=== PATIENT | male | born 1965 | race Two or more races ===

== ENCOUNTER 2017-02-02 17:05 | Emergency (ER) | payer MEDICAID, OTHER ==
[2017-02-02] MEDS ORDERED: NS 1,000 ML IV ONE (17:38)
[2017-02-02] MEDS ORDERED: ONDANSETRON 4 MG/2 ML VIAL IVP ONE (17:38)
[2017-02-02 17:55] LABS: % IMMATURE GRANULYOCYTES 0.3 % (0.0-1.1); ABSOLUTE IMMATURE GRANULOCYTES 0.02 10^3/uL (0.00-0.10); ADD DIFF? NO; ADD MORPH? NO; ADD SCAN? NO; ATYPICAL LYMPHOCYTE FLAG 0 (0-99); FRAGMENT RBC FLAG 0 (0-99); HEMATOCRIT 44.2 % (40.0-51.0); HEMOGLOBIN 15.2 g/dL (13.7-17.5); LEFT SHIFT FLG 0 (0-99); LIPEMIA HEMOLYSIS FLAG 90 (0-99); MEAN CELL HEMOGLOBIN 29.6 pg (27.9-34.1); MEAN CELL HEMOGLOBIN CONCENTR. 34.4 g/dL (32.4-36.7); MEAN CELL VOLUME 86.2 fL (81.5-99.8); MEAN PLATELET VOLUME 8.8 fL (8.7-11.7); PLATELET CLUMPS FLAG 0 (0-99); PLATELET COUNT 396 10^3/uL (150-400); RED BLOOD CELL COUNT 5.13 10^6/uL (4.40-6.38); RED CELL DISTRIBUTION WIDTH 15.4 % (11.5-15.2)
[2017-02-02 18:13] LABS: ALANINE AMINOTRANSFERASE 36 IU/L (21-72); ALBUMIN 3.9 g/dL (3.5-5.0); ALKALINE PHOSPHATASE 42 IU/L (38-126); ANION GAP 9 mEq/L (8-16); ASPARTATE AMINOTRANSFERASE 24 IU/L (17-59); BILIRUBIN,TOTAL 1.2 mg/dL (0.1-1.4); CALCIUM 9.5 mg/dL (8.5-10.4); CARBON DIOXIDE 21 mEq/l (22-31); CHLORIDE 105 mEq/L (97-110); CREATININE 0.8 mg/dL (0.7-1.3); GLOMERULAR FILTRATION RATE > 60; GLUCOSE 90 mg/dL (70-100); POTASSIUM 4.6 mEq/L (3.5-5.2); SODIUM 135 mEq/L (134-144); TOTAL PROTEIN 6.8 g/dL (6.3-8.2)
[2017-02-02 18:27] LABS: COLOR YELLOW; LEUKOCYTE ESTERASE,URINE NEGATIVE (NEGATIVE); NITRITE,URINE NEGATIVE (NEGATIVE); PH,URINE 6.5 (5.0-7.5)
[2017-02-02] MEDS ORDERED: IOPAMIDOL (ISOVUE-300) 100 ML BTL ONE (18:46)
[2017-02-02 18:49] VITALS: RESP 16
[2017-02-02 19:32] VITALS: TEMP 97.9
--- NOTE | 2017-02-02 19:35 | EDPHY ---
H & P Stated Complaint: RUQ pain for 3-4 days Time Seen by Provider: 02/02/17 17:08 HPI/ROS: 51-year-old male presents complaining of right upper quadrant abdominal pain for the last 1 week. Associated with nausea. No vomiting, no diarrhea no constipation no fevers or chills. Patient states his pain is worse with eating. He also complains of several months of pain in his right lateral ribs. Review of systems As per HPI General no fever no chills no weakness HEENT no eye pain no eye discharge. 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 - Family History Significant Family History: No pertinent family hx - Social History Smoking Status: Current every day smoker Alcohol Use: Heavy Drug Use: None - Physical Exam Exam: 51-year-old male alert and oriented no acute distress nontoxic appearance afebrile HEENT atraumatic normocephalic, extraocular muscles intact, anicteric Oropharynx negative for erythema negative exudate, tolerating her own secretions Neck supple no meningismus Lungs clear to auscultation bilaterally Heart regular rate and rhythm without murmur rub or gallop Abdomen nondistended normoactive bowel sounds soft positive right middle quadrant tenderness, no guarding no rebound No pulsatile mass Back no CVA tenderness, no step-offs, no spinal tenderness Extremities no cyanosis clubbing or edema Neuro alert and oriented, no focal deficits Constitutional: Initial Vital Signs Temperature (C) 37.1 C 02/02/17 17:18 Heart Rate 62 02/02/17 17:18 Respiratory Rate 18 02/02/17 17:18 Blood Pressure 129/84 H 02/02/17 17:18 O2 Sat (%) 96 02/02/17 17:18 O2 Delivery Mode Room Air Allergies/Adverse Reactions: No Known Allergies Allergy (Verified 02/02/17 17:20) Home Medications: Medication Instructions Recorded Multivitamins [Multivitamin (*)] 1 each PO DAILY #0 tab 11/13/15 Ibuprofen [Advil] 200 - 400 mg PO BID PRN 11/14/15 [place]-3 Fatty Acids [Fish Oil 1000 1,000 mg PO DAILY 11/14/15 mg (*)] Otc Acid Reflux Med 1 tab PO DAILY PRN 11/14/15 Acetaminophen [Tylenol 325mg (*)] 650 mg PO Q4 PRN #0 tab 11/15/15 Medical Decision Making - Diagnostics Imaging Results: Imaging Impressions Abdomen CT 02/02/17 18:17 Impression: No CT findings for appendicitis. Mild constipation. Results called and discussed with Sadaf Calhoun MD on February 02, 2017 at 1953 hours. ED Course/Re-evaluation: Patient seen and evaluated for abdominal pain of 4-7 days duration in rib pain for several months duration. Differential diagnosis considered Gastritis, cholecystitis, cholelithiasis, pancreatitis, hepatitis, fatty liver, appendicitis, diverticulitis Labs CBC, CMP, lipase Within normal limits CT abdomen No acute pathology Gallbladder negative, negative appendicitis Impression Abdominal pain, unknown etiology Plan Discharge f/u pcp - Data Points Laboratory Results: Laboratory Results 02/02/17 17:51 02/02/17 17:51 02/02/17 02/02/17 02/02/17 18:15 17:51 17:51 WBC 7.46 10^3/uL 10^3/uL (3.80-9.50) RBC 5.13 10^6/uL 10^6/uL (4.40-6.38) Hgb 15.2 g/dL g/dL (13.7-17.5) Hct 44.2 % % (40.0-51.0) MCV 86.2 fL fL (81.5-99.8) MCH 29.6 pg pg (27.9-34.1) MCHC 34.4 g/dL g/dL (32.4-36.7) RDW 15.4 % H % (11.5-15.2) Plt Count 396 10^3/uL 10^3/uL (150-400) MPV 8.8 fL fL (8.7-11.7) Neut % (Auto) 59.9 % % (39.3-74.2) Lymph % (Auto) 30.8 % % (15.0-45.0) [place] % (Auto) 6.2 % % (4.5-13.0) Eos % (Auto) 2.1 % % (0.6-7.6) Baso % (Auto) 0.7 % % (0.3-1.7) Nucleat RBC Rel Count 0.0 % % (0.0-0.2) Absolute Neuts (auto) 4.47 10^3/uL 10^3/uL (1.70-6.50) Absolute Lymphs (auto) 2.30 10^3/uL 10^3/uL (1.00-3.00) Absolute Monos (auto) 0.46 10^3/uL 10^3/uL (0.30-0.80) Absolute Eos (auto) 0.16 10^3/uL 10^3/uL (0.03-0.40) Absolute Basos (auto) 0.05 10^3/uL 10^3/uL (0.02-0.10) Absolute Nucleated RBC 0.00 10^3/uL 10^3/uL (0-0.01) Immature Gran % 0.3 % % (0.0-1.1) Immature Gran # 0.02 10^3/uL 10^3/uL (0.00-0.10) Sodium 135 mEq/L mEq/L (134-144) Potassium 4.6 mEq/L mEq/L (3.5-5.2) Chloride 105 mEq/L mEq/L (97-110) Carbon Dioxide 21 mEq/l L mEq/l (22-31) Anion Gap 9 mEq/L mEq/L (8-16) BUN 15 mg/dL mg/dL (7-23) Creatinine 0.8 mg/dL mg/dL (0.7-1.3) Estimated GFR > 60 Glucose 90 mg/dL mg/dL (70-100) Calcium 9.5 mg/dL mg/dL (8.5-10.4) Total Bilirubin 1.2 mg/dL mg/dL (0.1-1.4) AST 24 IU/L IU/L (17-59) ALT 36 IU/L IU/L (21-72) Alkaline Phosphatase 42 IU/L IU/L (38-126) Total Protein 6.8 g/dL g/dL (6.3-8.2) Albumin 3.9 g/dL g/dL (3.5-5.0) Lipase 62 IU/L IU/L (23-300) Urine Color YELLOW Urine Appearance HAZY Urine pH 6.5 (5.0-7.5) Ur Specific [employer] [place] 1.020 (1.002-1.030) Urine Protein NEGATIVE (NEGATIVE) Urine Ketones NEGATIVE (NEGATIVE) Urine Blood NEGATIVE (NEGATIVE) Urine Nitrate NEGATIVE (NEGATIVE) Urine Bilirubin NEGATIVE (NEGATIVE) Urine Urobilinogen 0.2 EU EU (0.2-1.0) Ur Leukocyte Esterase NEGATIVE (NEGATIVE) Urine Glucose NEGATIVE (NEGATIVE) Medications Given: Discontinued Medications Sodium Chloride (Ns) 1,000 mls @ 0 mls/hr IV ONCE ONE PRN Reason: Wide Open Stop: 02/02/17 17:39 Last Admin: 02/02/17 17:44 Dose: 1,000 mls Ondansetron HCl (Zofran) 4 mg IVP EDNOW ONE Stop: 02/02/17 17:39 Last Admin: 02/02/17 17:44 Dose: 4 mg Departure - Departure Disposition: Home, Routine, Self-Care Clinical Impression: Abdominal pain Condition: Good Instructions: Acute Abdominal Pain (ED) Referrals: NANCY WYATT,. [Primary Care Provider] - As per Instructions
[2017-02-02 20:38] VITALS: BP 119/77; PULSE 50; O2SAT 97
== END 2017-02-02 20:41 | disposition home or self-care (01) ==
LOC: CED 17:05
PROC: 3E0337Z Introduction of Electrolytic and Water Balance Substance into Peripheral Vein, Percutaneous Approach (ICD-10-PCS; principal; 2017-02-02)
DX: R10.11 Right upper quadrant pain (principal); I10 Essential (primary) hypertension; F17.200 Nicotine dependence, unspecified, uncomplicated
CPT/HCPCS: 74177-PO; 80053-PO; 81003-PO; 83690-PO; 85025-PO; 96374; J2405; Q9967

== ENCOUNTER 2017-02-21 16:03 | Emergency (ER) | payer MEDICAID ==
[2017-02-21] MEDS ORDERED: ONDANSETRON DISINTEGRATING 4 MG TAB PO ONE (16:27)
[2017-02-21] MEDS ORDERED: CHLORDIAZEPOXIDE 25MG PREPK#6 BTL TAKEHOME ONE ×2 (16:29)
--- NOTE | 2017-02-21 16:29 | EDPHY ---
H & P Time Seen by Provider: 02/21/17 16:22 HPI/ROS: CHIEF COMPLAINT: Intoxication HISTORY OF PRESENT ILLNESS: The patient is a 51-year-old alcoholic man who comes to the emergency department complaining of vomiting and dehydration. He states that he has been on a binge for the last for 5 days. He has had 100 beers in the last 4 days. His last drink was about an hour ago. He is requesting help to control his vomiting. He is afebrile. No abdominal pain. He also had 1 episode of nonbloody diarrhea. He is here requesting nausea medication and IV fluids. REVIEW OF SYSTEMS: Constitutional: denies: chills, fever, recent illness, recent injury EENTM: denies: blurred vision, double vision, nose congestion Respiratory: denies: cough, shortness of breath Cardiac: denies: chest pain, irregular heart rate, lightheadedness, palpitations Gastrointestinal/Abdominal: See HPI Genitourinary: denies: dysuria, frequency, hematuria, pain Musculoskeletal: denies: joint pain, muscle pain Skin: denies: lesions, rash, jaundice, bruising Neurological: denies: headache, numbness, paresthesia, tingling, dizziness, weakness Hematologic/Lymphatic: denies: blood clots, easy bleeding, easy bruising Immunologic/allergic: denies: HIV/AIDS, transplant EXAM: GENERAL: Disheveled HEAD: Atraumatic, normocephalic. EYES: Pupils equal round and reactive to light, extraocular movements intact, sclera anicteric, conjunctiva are normal. ENT: TMs normal, nares patent, oropharynx clear without exudates. Moist mucous membranes. NECK: Normal range of motion, supple without lymphadenopathy or JVD. LUNGS: Breath sounds clear to auscultation bilaterally and equal. No wheezes rales or rhonchi. HEART: Regular rate and rhythm without murmurs, rubs or gallops. ABDOMEN: Soft, nontender, normoactive bowel sounds. No guarding, no rebound. No masses appreciated. BACK: No CVA tenderness, no spinal tenderness, step-offs or deformities EXTREMITIES: Normal range of motion, no pitting or edema. No clubbing or cyanosis. NEUROLOGICAL: Cranial nerves II through XII grossly intact. Normal speech, normal gait. 5/5 strength, normal movement in all extremities, normal sensation PSYCH: And slightly slurred speech, intoxicated SKIN: Warm, dry, normal turgor, no visible rashes or lesions. 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 - Family History Significant Family History: No pertinent family hx - Social History Smoking Status: Current every day smoker Alcohol Use: Heavy Constitutional: Initial Vital Signs Temperature (C) 36.5 C 02/21/17 16:15 Heart Rate 97 02/21/17 16:15 Respiratory Rate 18 02/21/17 16:15 Blood Pressure 138/92 H 02/21/17 16:15 O2 Sat (%) 91 L 02/21/17 16:15 O2 Delivery Mode Room Air Allergies/Adverse Reactions: No Known Allergies Allergy (Verified 02/21/17 16:34) Home Medications: Medication Instructions Recorded Otc Acid Reflux Med 1 tab PO DAILY PRN 11/14/15 Medical Decision Making ED Course/Re-evaluation: Patient received oral Zofran. He is tolerating p.o. hydration. I will transfer to the alcohol recovery Center with police and Librium protocol. The patient understands and agrees with this plan. We discussed indications for returning. Differential Diagnosis: Partial list of the Differential diagnosis considered include but were not limited to; intoxication, withdrawal, gastroenteritis and although unlikely based on the history and physical exam, I also considered appendicitis, diverticulitis, biliary disease, obstruction, hepatic disease . I discussed these differential diagnoses and the plan with the patient as well as the usual and expected course. The patient understands that the diagnosis is provisional and that in medicine we are not always correct and that further workup is often warranted. Usual and customary warnings were given. All of the patient's questions were answered. The patient was instructed to return to the emergency department should the symptoms at all worsen or return, otherwise to followup with the physician as we discussed. - Data Points Medications Given: Discontinued Medications Chlordiazepoxide (Librium 25 Mg Prepack#6) 1 btl TAKEALEXAE EDNOW ONE Stop: 02/21/17 16:30 Last Admin: 02/21/17 16:31 Dose: 1 btl Ondansetron HCl (Zofran Odt) 8 mg PO EDNOW ONE Stop: 02/21/17 16:28 Last Admin: 02/21/17 16:31 Dose: 8 mg Departure - Departure Disposition: Home, Routine, Self-Care Clinical Impression: Alcohol abuse Vomiting Qualifiers: Vomiting type: unspecified Vomiting Intractability: unspecified Nausea presence : unspecified Qualified Code(s): R11.10 - Vomiting, unspecified Condition: Fair Instructions: Chlordiazepoxide (By mouth), Alcohol Intoxication (ED) Referrals: [facility],. [Primary Care Provider] - 1-2 days without fail
[2017-02-21 16:58] VITALS: BP 129/90; PULSE 96; RESP 18; O2SAT 94
[2017-02-21 17:08] VITALS: TEMP 97.7
== END 2017-02-21 17:08 | disposition home or self-care (01) ==
LOC: CED 16:03
DX: R11.10 Vomiting, unspecified (principal); F10.10 Alcohol abuse, uncomplicated; I10 Essential (primary) hypertension; F17.200 Nicotine dependence, unspecified, uncomplicated

== ENCOUNTER 2017-02-21 21:41 | Inpatient (IN) | payer MEDICAID ==
--- NOTE | 2017-02-21 22:00 | EDPHY ---
H & P Stated Complaint: n/v - Personal History Current Tetanus/Diphtheria Vaccine: Yes Current Tetanus Diphtheria and Acellular Pertussis (TDAP): Yes Tetanus Vaccine Date: 2013 - Medical/Surgical History Hx Asthma: No Hx Chronic Respiratory Disease: No Hx Diabetes: No Hx Cardiac Disease: No Hx Renal Disease: No Hx Cirrhosis: No Hx Alcoholism: Yes Hx HIV/AIDS: No Hx Splenectomy or Spleen Trauma: No Other PMH: Hypertension; ETOHism. - Social History Smoking Status: Current some day smoker Time Seen by Provider: 02/21/17 21:53 HPI/ROS: CHIEF COMPLAINT: Nausea and vomiting HISTORY OF PRESENT ILLNESS: The patient is a [place]-speaking 51 y/o male with a history of alcoholism complaining of persistent nausea and vomiting onset yesterday on day four of an alcohol binge. He was admitted 11/2015 to the ICU for alcohol withdrawal following a five day alcohol binge. Yesterday afternoon he began feeling nauseous and started vomiting. He has not been able to keep liquids down since yesterday and had his last alcohol drink this morning which he then vomited. He initially presented to [facility] ED this afternoon with similar symptoms and was discharged with Ana M and Karen and referred to the [facility] for detox. It is not clear he went to detox and states his symptoms have worsened.He now has associated bilateral abdominal pain, shakiness, and general weakness. He denies any other medical issue. History obtained through a certified registered nurse practitioner. REVIEW OF SYSTEMS: Constitutional: No fever, no chills Eyes: No visual changes ENT: No sore throat Respiratory: No cough, no shortness of breath Cardiac: No chest pain Gastrointestinal: + Nausea, + vomiting, + abdominal pain Genitourinary: No hematuria, no dysuria Musculoskeletal: No leg pain or swelling Skin: No rash Neurological: See HPI Psychiatric: No depression (Jenna Goyal) - Medical/Surgical History PMH: PMH includes: 1. Alcoholism 2. Hypertension 3. GI bleed 4. BPH Past medical records reviewed including ED visit at [facility] 02/21/17, admission , admission 11/14/15 for alcohol withdrawal. (Jenna Goyal) - Social History Additional Social History: [place]-speaking, daily smoker, alcohol abuse, lives in [place], . (Jenna Goyal) - Physical Exam Exam: General Appearance: Alert, no distress Eyes: Pupils equal and round, no conjunctival pallor or injection ENT, Mouth: Mucous membranes moist Neck: Normal inspection Respiratory: Lungs are clear to auscultation Cardiovascular: Regular rate and rhythm Gastrointestinal: Abdomen is soft and mild tenderness over the liver Neurological: A&O, nonfocal, normal gait, tremulous Skin: Warm and dry, no rash Extremities: Nontender, no pedal edema Psychiatric: Mood and affect normal (Jenna Goyal) Constitutional: Initial Vital Signs Temperature (C) 37.5 C 02/21/17 21:49 Heart Rate 105 H 02/21/17 21:49 Respiratory Rate 20 02/21/17 21:49 Blood Pressure 123/78 H 02/21/17 21:49 O2 Sat (%) 90 L 02/21/17 21:49 O2 Delivery Mode Room Air O2 (L/minute) 2 Allergies/Adverse Reactions: No Known Allergies Allergy (Verified 02/21/17 21:48) Home Medications: Medication Instructions Recorded Herbals/Supplements -Info Only 1 ea PO DAILY 02/22/17 Loperamide HCl [Imodium 2 mg (*)] 2 mg PO PRN PRN #20 cap 02/23/17 Ondansetron Odt [Zofran Odt 4 mg 4 mg PO Q4HRS PRN #40 tab 02/23/17 (*)] Pantoprazole Sodium [Protonix 40mg 40 mg PO DAILY #30 tab 02/23/17 (*)] Medical Decision Making ED Course/Re-evaluation: 1224AM: I have seen evaluated the patient. He continues to have nausea. I did re-evaluate him his abdomen soft. Given his electrolyte disturbance which are rather severe over the hyponatremia and hypochloremia I feel this patient should be admitted the hospital for gentle IV hydration. Also placed on CIWA protocol for alcohol withdrawal. Electrolyte replacement protocol. Patient agrees with this plan. I will consult the hospitalist service for admission. 1252AM: Spoke with Dr. Schmidt for admission. She accepts. (Petey Sams) This is a 51 y/o male presenting with a 1-day history of nausea and vomiting in the setting of heavy alcohol use for the past four days. He has a history of alcoholism and has been hospitalized 11/2015 for withdrawal.On exam he has mild abdominal tenderness and is tremulous. His presentation is consistent with alcohol withdrawal. IV established. Labs ordered including lipase and liver enzymes. Plan for symptom management with 1 mg IV Ativan, 4 mg IV Ondansetron and 1L IV NS administered. (Jenna Goyal) Differential Diagnosis: includes though not limited to pancreatitis, acute hepatitis, alcoholic ketoacidosis, cholecystitis, SBO. (Jenna Goyal) - Data Points Laboratory Results: Laboratory Results 02/21/17 22:04 02/21/17 22:04 Medications Given: Discontinued Medications Enoxaparin Sodium (Lovenox) 40 mg SC DAILY ALEXANDRA Stop: 08/21/17 08:59 Last Admin: 02/23/17 09:48 Dose: 40 mg Hydromorphone HCl (Dilaudid) 0.2 - 1 mg IVP Q2 PRN PRN Reason: Pain, Severe Unable to Take PO Stop: 03/04/17 01:59 Last Admin: 02/23/17 00:25 Dose: 0.4 mg Sodium Chloride (Ns) 1,000 mls @ 0 mls/hr IV EDNOW ONE; Wide Open PRN Reason: Protocol Stop: 02/21/17 22:16 Last Admin: 02/21/17 22:36 Dose: 1,000 mls Potassium Chloride/Sodium Chloride (Ns W/ 20 Kcl/L) 1,000 mls @ 100 mls/hr IV CONT ALEXANDRA Stop: 08/21/17 01:59 Last Admin: 02/22/17 03:01 Dose: 1,000 mls Famotidine/Sodium Chloride (Pepcid 20 Mg (Premix)) 50 mls @ 200 mls/hr IV Q12HRS ALEXANDRA Stop: 08/21/17 02:04 Last Admin: 02/23/17 09:49 Dose: 50 mls Thiamine HCl 500 mg/ Sodium (Chloride) 105 mls @ 210 mls/hr IV DAILY ALEXANDRA Stop: 02/24/17 09:29 Last Admin: 02/23/17 09:48 Dose: 105 mls Potassium Chloride (Potassium Cl 10 Meq (Premix)) 100 mls @ 100 mls/hr IV Q1H ALEXANDRA Stop: 02/22/17 10:57 Last Admin: 02/22/17 14:24 Dose: 100 mls Potassium Chloride 40 meq/ (Sodium Chloride) 1,000 mls @ 100 mls/hr IV CONT ALEXANDRA Stop: 08/21/17 08:44 Last Admin: 02/23/17 07:42 Dose: 1,000 mls Potassium Chloride (Potassium Cl 10 Meq (Premix)) 100 mls @ 100 mls/hr IV Q1H ALEXANDRA Stop: 02/22/17 19:14 Last Admin: 02/22/17 19:35 Dose: 100 mls Influenza Virus Vaccine Quadrival (Fluarix Quad [id number]) 0.5 ml IM .ONCE ONE Stop: 02/23/17 14:00 Last Admin: 02/23/17 14:53 Dose: 0.5 ml Lorazepam (Ativan Injection) 1 mg IVP EDNOW ONE Stop: 02/21/17 22:25 Last Admin: 02/21/17 22:36 Dose: 1 mg Lorazepam (Ativan Injection) 0.5 - 2 mg IVP Q2 PRN PRN Reason: Anxiety, Unable to Take PO Stop: 08/21/17 09:45 Last Admin: 02/22/17 18:36 Dose: 1 mg Lorazepam (Ativan) 0.5 - 2 mg PO Q4HRS PRN PRN Reason: Agitation if able to take PO Stop: 08/21/17 02:04 Last Admin: 02/23/17 04:20 Dose: 2 mg Multivitamins (Tab-A-Kena) 1 each PO DAILY ALEXANDRA Stop: 08/21/17 08:59 Last Admin: 02/23/17 09:48 Dose: 1 each Nicotine (Nicoderm Cq) 14 mg TD DAILY ALEXANDRA Stop: 08/21/17 08:59 Last Admin: 02/23/17 09:49 Dose: Not Given Ondansetron HCl (Zofran) 4 mg IVP EDNOW ONE Stop: 02/21/17 22:16 Last Admin: 02/21/17 22:36 Dose: 4 mg Ondansetron HCl (Zofran) 4 mg IVP EDNOW ONE Stop: 02/22/17 01:47 Last Admin: 02/22/17 01:47 Dose: 4 mg Ondansetron HCl (Zofran) 4 - 8 mg IVP Q4HRS PRN PRN Reason: Nausea/Vomiting, Can't Take PO Stop: 08/21/17 01:59 Last Admin: 02/23/17 13:35 Dose: 4 mg Pneumococcal Polyvalent Vaccine (Pneumovax 23) 0.5 ml IM .ONCE ONE Stop: 02/23/17 14:00 Last Admin: 02/23/17 14:56 Dose: 0.5 ml Promethazine HCl (Phenergan) 6.25 - 12.5 mg IVP Q6HRS PRN PRN Reason: Nausea/Vomiting, Use 2nd Stop: 08/21/17 01:59 Last Admin: 02/22/17 08:28 Dose: 12.5 mg Departure - Departure Disposition: [facility] Inpatient Acute Clinical Impression: Hyponatremia, Hypochloremia Alcohol withdrawal Qualifiers: Complication of substance-induced condition: uncomplicated Qualified Code(s): F10.230 - Alcohol dependence with withdrawal, uncomplicated Vomiting Qualifiers: Vomiting type: unspecified Vomiting Intractability: non-intractable Nausea presence: with nausea Qualified Code(s): R11.2 - Nausea with vomiting, unspecified Condition: Good Report Scribed for: Jenna Goyal Report Scribed by: Sara Curry Date of Report: 02/21/17 Time of Report: 22:01 Physician Review and Approval Statement: 02/21/17 22:01 Portions of this note were transcribed by a regional medical director. I personally performed a history, physical exam, medical decision making, and confirmed accuracy of information the transcribed note. (Jenna Goyal)
[2017-02-21] MEDS ORDERED: ONDANSETRON 4 MG/2 ML VIAL IVP ONE (22:15)
[2017-02-21] MEDS ORDERED: NS 1,000 ML IV ONE (22:15)
[2017-02-21 22:22] LABS: % IMMATURE GRANULYOCYTES 0.8 % (0.0-1.1); ABSOLUTE IMMATURE GRANULOCYTES 0.15 10^3/uL (0.00-0.10); ADD DIFF? NO; ADD MORPH? NO; ADD SCAN? NO; ATYPICAL LYMPHOCYTE FLAG 0 (0-99); FRAGMENT RBC FLAG 0 (0-99); HEMATOCRIT 48.9 % (40.0-51.0); HEMOGLOBIN 17.6 g/dL (13.7-17.5); LEFT SHIFT FLG 10 (0-99); LIPEMIA HEMOLYSIS FLAG 90 (0-99); MEAN CELL HEMOGLOBIN 30.1 pg (27.9-34.1); MEAN CELL VOLUME 83.6 fL (81.5-99.8); MEAN PLATELET VOLUME 8.9 fL (8.7-11.7); PLATELET CLUMPS FLAG 10 (0-99); PLATELET COUNT 346 10^3/uL (150-400); RED BLOOD CELL COUNT 5.85 10^6/uL (4.40-6.38); RED CELL DISTRIBUTION WIDTH 15.9 % (11.5-15.2)
[2017-02-21] MEDS ORDERED: LORazepam 2 MG/ML INJ IVP ONE (22:24)
[2017-02-21 22:36] LABS: ALANINE AMINOTRANSFERASE 61 IU/L (21-72); ALBUMIN 4.7 g/dL (3.5-5.0); ALKALINE PHOSPHATASE 78 IU/L (38-126); ANION GAP 20 mEq/L (8-16); ASPARTATE AMINOTRANSFERASE 83 IU/L (17-59); BILIRUBIN,TOTAL 1.6 mg/dL (0.1-1.4); BILIRUBIN-CONJUGATED 0.1 mg/dL (0.0-0.5); BILIRUBIN-UNCONJUGATED 1.5 mg/dL (0.0-1.1); CALCIUM 9.4 mg/dL (8.5-10.4); CARBON DIOXIDE 37 mEq/l (22-31); CHLORIDE 70 mEq/L (97-110); CREATININE 1.1 mg/dL (0.7-1.3); GLOMERULAR FILTRATION RATE > 60; GLUCOSE 128 mg/dL (70-100); POTASSIUM 3.1 mEq/L (3.5-5.2); SODIUM 127 mEq/L (134-144); TOTAL PROTEIN 8.1 g/dL (6.3-8.2)
[2017-02-22 01:02] LABS: MAGNESIUM 1.7 mg/dL (1.6-2.3)
[2017-02-22] MEDS ORDERED: ONDANSETRON 4 MG/2 ML VIAL ONE (01:45)
[2017-02-22] MEDS ORDERED: ONDANSETRON 4 MG/2 ML VIAL IVP ONE (01:46)
[2017-02-22] MEDS ORDERED: HYDROmorphONE/DILAUDID 1 MG/ML INJ IVP PRN (02:00)
[2017-02-22] MEDS ORDERED: NS W/ 20 KCl/L 1,000 ML IV SCH (02:00)
[2017-02-22] MEDS ORDERED: LORazepam 0.5 MG TAB PO PRN (02:00)
[2017-02-22] MEDS ORDERED: oxyCODONE IR 5 MG TAB PO PRN (02:00)
[2017-02-22] MEDS ORDERED: ONDANSETRON 4 MG/2 ML VIAL IVP PRN (02:00)
[2017-02-22] MEDS ORDERED: diphenhydrAMINE 25 MG CAP PO PRN (02:00)
[2017-02-22] MEDS ORDERED: ONDANSETRON DISINTEGRATING 4 MG TAB PO PRN (02:00)
[2017-02-22] MEDS ORDERED: PROTOCOL POTASSIUM 1 DOSE MISC PRN (02:03)
[2017-02-22] MEDS ORDERED: PROTOCOL MAGNESIUM 1 DOSE IV PRN (02:03)
[2017-02-22] MEDS ORDERED: LORazepam 1 MG TAB PO PRN (02:05)
[2017-02-22] MEDS: THIAMINE HCL 500 MG in NS 100 ML IV SCH (03:01)
[2017-02-22] MEDS: PROMETHAZINE HCL 25 MG/ML INJ IVP PRN ×2 (03:01→08:28)
[2017-02-22] MEDS: FAMOTIDINE 20 MG/NACL 50 ML IV SCH ×3 (03:01→20:13)
--- NOTE | 2017-02-22 04:10 | GHP ---
[f rep st] HISTORY AND PHYSICAL DATE OF ADMISSION: 02/22/2017 SOURCE: Patient is Anguillan speaking only. I am able to elicit the majority of the history, although limited as shoe associate service is gone for the evening. EMR was reviewed and case discussed with ED provider. CHIEF COMPLAINT: Nausea, vomiting, and abdominal pain. HISTORY OF PRESENT ILLNESS: This is a 51-year-old gentleman with a past medical history significant for alcohol abuse, hypertension, BPH, who presents to the emergency department with complaints of int ractable nausea and vomiting. Patient has been on a 4-5 day alcohol binge and has a previous admissi on in November of 2015 for similar events after bingeing and subsequently discontinuing alcohol intake an d development of nausea, vomiting. The patient is reporting some diffuse mid abdominal pain, general ized weakness, and decreased urine output. Patient reports some subjective fevers and chills. Patie nt reports he has not been able to keep anything down. He denies any hematemesis. No diarrhea. No melena or hematochezia. Patient's nausea and vomiting started the day prior to admission. He [place] [facility] with similar symptoms. He was discharged with prescriptions for Zofran and Librium and referred for detox. REVIEW OF SYSTEMS: GENERAL: Subjective fevers and chills. EYES: Patient denies changes in vision. CV: Patient denies any chest pain or palpitations. RESPIRATORY: Patient denies any cough, shortn ess of breath. GI: See HPI. : No dysuria or hematuria. Patient reports he has had decreased ur ine output, has not been able to go since arrival to the emergency department. Remainder negative an d limited without shoe associate. ALLERGIES: No known drug allergies. PAST MEDICAL HISTORY: Significant for alcohol abuse, hypertension, BPH. PAST SURGICAL HISTORY: The patient denies any surgeries. FAMILY HISTORY: Positive for alcohol dependence. SOCIAL HISTORY: Patient reports he smokes a little bit. When asked to quantify how much alcohol he is drinking and differentiate between liquor and beer, patient only states a lot in [place]gu[place]. He yair es any illicit drug use. CODE STATUS: Full. PHYSICAL EXAMINATION: VITAL SIGNS: On arrival to the ER, temperature 37.5, heart rate 105, blood pr essure 127/78, pulse ox 90% on room air. Vitals at interview: Blood pressure 145/75, heart rate 88, respiratory rate 20, O2 saturation 95% on room air. GENERAL: No acute distress. Chronically ill, thin adult male, appears older than stated age, is resting quietly in bed. He does appear a little b it restless but cooperative and otherwise pleasant. He is Anguillan-speaking. HEAD: Normocephalic, a traumatic. EYES: Extraocular muscles are intact. Pupils equal and round. Slightly decreased react denzel to light bilaterally but symmetric. No scleral icterus or conjunctival injection. ENT: Mucous membranes appear slightly dry. No oropharyngeal erythema. No exudates. NECK: Supple. Trachea mid line. CV: Regular rate and rhythm. No murmurs, rubs, or gallops appreciated. RESPIRATORY: Lungs are to auscultation bilaterally. No wheezes, rales, or rhonchi. ABDOMEN: Positive bowel sounds. S oft. Nondistended. Tenderness to palpation. Patient with some complaints of tenderness over the mi d abdomen bilaterally with just some mild palpation. Negative Morgan sign. No rebound. : No Fol ey in place. No suprapubic tenderness to palpation. EXTREMITIES: No cyanosis, clubbing, or edema a ppreciated. 2+ pedal pulses. NEURO: Grossly nonfocal. No facial drooping. Moves all extremities. Strength 5/5 in upper and lower extremities. PSYCH: Patient appears to be appropriate. Again, Sp susan-speaking, but answers questions appropriately in [place]gu[place]. Does appear a little bit restless bu t otherwise re-directable and cooperative. LABORATORY DATA: WBC 19.33, H and H 17.6 and 48.9, MCV of 83.6, platelet count 346. Neutrophil perc ent 92.5. Sodium 127, potassium 3.1, chloride 70, CO2 is 37, anion gap 20, BUN 17, creatinine 1.1, glucose 128, calcium 9.4, phosphorus 6.3, magnesium 1.7, total bilirubin 1.6, conjugated bilirubin 0.1, unconjuga roibn 1.5, ALT 61, AST 83, alkaline phosphatase 78, total protein 8.1, albumin 4.7, lipase 36. ASSESSMENT AND PLAN: This is a 51-year-old gentleman with history of alcohol abuse, who presents wit h complaints of intractable nausea and vomiting for 1 day following an alcohol binge with subsequent nausea, vomiting, and withdrawal. 1. Alcohol withdrawal. WA protocol has been put into place with p.r.n. Ativan. Patient's heart r ate has improved since arrival to the emergency department. 2. Intractable nausea and vomiting. The patient continues to have episodes of emesis despite severa l doses of Zofran. Will add on Phenergan p.r.n., Benadryl available, and consider Ativan use for add itional symptom control. EKG obtained has not yet crossed over into the [facility], but consider Haldo l if symptoms still not yet controlled and QT is not prolonged. 3. Systemic inflammatory response syndrome criteria without any evidence of infectious source. Dianne ent with a leukocytosis, tachycardia on arrival, and this does not appear to be an infectious etiolog y at this time. Will continue to monitor patient's leukocytes and still awaiting a urine culture, bu t patient denies any associated symptoms. No antibiotics at this time. Continue to monitor. 4. Hypokalemia related to nausea, vomiting, and gastrointestinal losses. Continue with replacement protocol. 5. Hyponatremia related to hypovolemia in setting of nausea and vomiting. Will continue to monitor and continue with aggressive IV fluid hydration. 6. Hypochloridemia in setting of hyponatremia. Continue with fluid resuscitation as above. 7. Hypercarbia. Continue with IV fluid hydration. 8. Hyperglycemia. Nonfasting lab. Patient has been n.p.o. for some time, but will plan to repeat a fter IV fluid hydration and consider further evaluation if still elevated in the morning. 9. Hyperbilirubinemia, mildly elevated. Continue IV fluid hydration and repeat in the morning. 10. Fluids, electrolytes, and nutrition. Continue with IV fluids as noted above. Electrolytes will be replaced and protocols ordered. Nutrition: Will advance diet as tolerated by the patient given his continued episodes of nausea and vomiting. 11. Prophylaxis. SCDs and Lovenox. Check PT, INR in the morning. 12. Code status. Full. DISPOSITION: Patient was admitted to inpatient status on the PCU floor. Given the severity and nume nemesio electrolyte imbalances and his current withdraw from alcohol, anticipate more than a 2-midnight stay. /[id number]/MODL
[2017-02-22 05:18] LABS: % IMMATURE GRANULYOCYTES 0.3 % (0.0-1.1); ABSOLUTE IMMATURE GRANULOCYTES 0.05 10^3/uL (0.00-0.10); ADD DIFF? NO; ADD MORPH? NO; ADD SCAN? NO; ATYPICAL LYMPHOCYTE FLAG 0 (0-99); FRAGMENT RBC FLAG 0 (0-99); HEMATOCRIT 45.1 % (40.0-51.0); LEFT SHIFT FLG 0 (0-99); LIPEMIA HEMOLYSIS FLAG 90 (0-99); MEAN CELL HEMOGLOBIN 29.9 pg (27.9-34.1); MEAN CELL HEMOGLOBIN CONCENTR. 35.5 g/dL (32.4-36.7); MEAN CELL VOLUME 84.3 fL (81.5-99.8); MEAN PLATELET VOLUME 9.4 fL (8.7-11.7); PLATELET CLUMPS FLAG 10 (0-99); PLATELET COUNT 316 10^3/uL (150-400); RED BLOOD CELL COUNT 5.35 10^6/uL (4.40-6.38); RED CELL DISTRIBUTION WIDTH 15.7 % (11.5-15.2)
[2017-02-22 05:31] LABS: ALANINE AMINOTRANSFERASE 53 IU/L (21-72); ALBUMIN 4.2 g/dL (3.5-5.0); ALKALINE PHOSPHATASE 65 IU/L (38-126); ANION GAP 14 mEq/L (8-16); ASPARTATE AMINOTRANSFERASE 68 IU/L (17-59); BILIRUBIN,TOTAL 2.4 mg/dL (0.1-1.4); CALCIUM 8.8 mg/dL (8.5-10.4); CARBON DIOXIDE 38 mEq/l (22-31); CHLORIDE 76 mEq/L (97-110); GLOMERULAR FILTRATION RATE > 60; GLUCOSE 117 mg/dL (70-100); INR 0.94 (0.83-1.16); POTASSIUM 2.8 mEq/L (3.5-5.2); PROTIME(PATIENT) 12.5 SEC (12.0-15.0); SODIUM 128 mEq/L (134-144); TOTAL PROTEIN 7.4 g/dL (6.3-8.2)
[2017-02-22] MEDS: POTASSIUM Cl (KCl) 100 ML IV SCH ×7 (07:27→19:35)
[2017-02-22 07:41] LABS: BILIRUBIN-CONJUGATED 0.4 mg/dL (0.0-0.5)
[2017-02-22] MEDS: POTASSIUM Cl (KCl) 40 MEQ in NS 1,000 ML IV SCH ×2 (09:01→19:39)
[2017-02-22] MEDS ORDERED: PROCHLORPERAZINE MALEATE 25 MG SUPPR PR PRN (09:48)
[2017-02-22] MEDS ORDERED: PROMETHAZINE HCL 25 MG/ML INJ IVP PRN (09:49)
[2017-02-22] MEDS: HYDROmorphONE/DILAUDID 1 MG/ML INJ IVP PRN ×2 (10:36→19:48)
[2017-02-22] MEDS: ENOXAPARIN 40 MG/0.4 ML SYR SC SCH (11:20)
[2017-02-22] MEDS: NICOTINE 14 MG/24 HR PATCH TD SCH (11:20)
[2017-02-22] MEDS: MULTIVITAMINS 1 EACH TAB PO SCH (11:24)
--- NOTE | 2017-02-22 13:39 | HOSPPROG ---
Hospitalist Progress Note Assessment/Plan: Prolonged service in addition to the time spent in history and physical by Dr. Whit Schmidt, direct patient care, [id number] with patient at bedside, from 9: 05 a.m. until 9:37 a.m., 32 minutes, addressing the following: -he has ongoing nausea vomiting and has been unable to affectively tolerate oral medications, adjusting his Ativan dosage to IV more frequently with a walker dose range, given his persistently elevated CIWA scores -widen the dosage ranges of Phenergan, morphine, and Zofran, adding as needed p.r. Compazine, to treat what is suspected alcohol induced gastritis -physical exam demonstrates illness but no asterixis, abdominal tenderness without rebound or guarding, alert awake oriented x3, conjunctiva injection, bowel sounds are present -patient is on a clear liquid diet, he is allowed to consume liquids but the most recent trial resultant vomiting, patient would like to retry -if patient's abdominal discomfort escalates we will be getting abdominal CT with IV contrast -if patient's CIWA scores continue to rise, would recommend transferring to Step Down unit -adjust IVF to NS w 40mEq K + KIV, repeat chem panel this PM Objective: Vital Signs Temp Pulse Resp BP Pulse Ox 37.2 C 76 14 122/70 H 87 L 02/22/17 11:35 02/22/17 11:35 02/22/17 11:35 02/22/17 11:35 02/22/17 11:35 Laboratory Results 02/22/17 04:30 02/22/17 04:30 02/21/17 02/22/17 02/23/17 05:59 05:59 05:59 Intake Total 1850 120 Output Total 650 140 Balance 1200 -20 PT 12.5 SEC (12.0-15.0) 02/22/17 04:30 INR 0.94 (0.83-1.16) 02/22/17 04:30 ICD10 Worksheet Patient Problems: Problems Problem Status Onset Hyponatremia Acute Metabolic alkalosis Acute Sepsis Acute Alcohol withdrawal Acute Hypokalemia Acute Hypomagnesemia Acute Vomiting Acute Hypochloremia Acute
--- NOTE | 2017-02-22 14:58 | ASMTCMCOM ---
CM Note CM Note Notes: 02/22/2017 Case Management Note: Met w/pt and [employer] bi consultant to discuss living situation and desire for alcohol cessation resources. Pt reports he is now and living with roommates from [place]. He was unable to recall his address but said he lives in [place]. During 2016 admission pt was giving resources for [place] alcohol support group in [facility]. Pt stated he attended just one or two classes as they were to far away. Pt would like to stop drinking, requested classes in [place]. Pt is current with [facility]. Pt could not recall name of provider. Case Management called [facility] at [phone] and spoke w/solutions development analyst RN. Case Management to provided information for [facility] at d/c. [facility] to assess behavioral health needs and provide necessary referrals to support groups. Case management d/c poc: Home independent w/follow up at [facility] when medically stable. Date Signed: 02/22/2017 02:57 PM Electronically Signed By:Mikaela Hare RN
[2017-02-22] MEDS: LORazepam 2 MG/ML INJ IVP PRN ×2 (15:00→18:36)
[2017-02-22 15:31] LABS: ANION GAP 11 mEq/L (8-16); CALCIUM 8.4 mg/dL (8.5-10.4); CARBON DIOXIDE 34 mEq/l (22-31); CHLORIDE 83 mEq/L (97-110); CREATININE 0.9 mg/dL (0.7-1.3); GLOMERULAR FILTRATION RATE > 60; GLUCOSE 101 mg/dL (70-100); MAGNESIUM 2.1 mg/dL (1.6-2.3); SODIUM 128 mEq/L (134-144)
--- NOTE | 2017-02-22 18:39 | CPEKG ---
Heart Rate: 66 RR Interval: 909 P-R Interval: 156 QRSD Interval: 88 QT Interval: 500 QTC Interval: 524 P Irvine: 30 QRS Irvine: 38 T Wave Irvine: 48 EKG Severity - ABNORMAL ECG - EKG Impression: SINUS RHYTHM EKG Impression: PROLONGED QT INTERVAL Electronically Signed By: Madeleine Gonzales 23-Feb-2017 20:00:23
[2017-02-22] MEDS: ONDANSETRON 4 MG/2 ML VIAL IVP PRN (19:48)
[2017-02-22] MEDS: LORazepam 1 MG TAB PO PRN (23:08)
[2017-02-22 23:49] VITALS: RESP 16
[2017-02-23] MEDS: HYDROmorphONE/DILAUDID 1 MG/ML INJ IVP PRN (00:25)
[2017-02-23] MEDS: ONDANSETRON 4 MG/2 ML VIAL IVP PRN ×2 (04:17→13:35)
[2017-02-23] MEDS: LORazepam 1 MG TAB PO PRN (04:20)
[2017-02-23 04:41] LABS: % IMMATURE GRANULYOCYTES 0.3 % (0.0-1.1); ABSOLUTE IMMATURE GRANULOCYTES 0.03 10^3/uL (0.00-0.10); ADD DIFF? NO; ADD MORPH? NO; ADD SCAN? NO; ATYPICAL LYMPHOCYTE FLAG 0 (0-99); FRAGMENT RBC FLAG 0 (0-99); HEMATOCRIT 43.2 % (40.0-51.0); HEMOGLOBIN 14.6 g/dL (13.7-17.5); LEFT SHIFT FLG 0 (0-99); LIPEMIA HEMOLYSIS FLAG 90 (0-99); MEAN CELL HEMOGLOBIN 29.4 pg (27.9-34.1); MEAN CELL HEMOGLOBIN CONCENTR. 33.8 g/dL (32.4-36.7); MEAN CELL VOLUME 87.1 fL (81.5-99.8); MEAN PLATELET VOLUME 9.6 fL (8.7-11.7); PLATELET CLUMPS FLAG 10 (0-99); PLATELET COUNT 243 10^3/uL (150-400); RED BLOOD CELL COUNT 4.96 10^6/uL (4.40-6.38); RED CELL DISTRIBUTION WIDTH 15.5 % (11.5-15.2)
[2017-02-23 05:08] LABS: ALANINE AMINOTRANSFERASE 110 IU/L (21-72); ALBUMIN 3.4 g/dL (3.5-5.0); ALKALINE PHOSPHATASE 54 IU/L (38-126); ANION GAP 7 mEq/L (8-16); ASPARTATE AMINOTRANSFERASE 183 IU/L (17-59); BILIRUBIN,TOTAL 2.6 mg/dL (0.1-1.4); CALCIUM 8.4 mg/dL (8.5-10.4); CARBON DIOXIDE 30 mEq/l (22-31); CHLORIDE 94 mEq/L (97-110); CREATININE 0.9 mg/dL (0.7-1.3); GLOMERULAR FILTRATION RATE > 60; GLUCOSE 98 mg/dL (70-100); MAGNESIUM 2.3 mg/dL (1.6-2.3); POTASSIUM 3.8 mEq/L (3.5-5.2); SODIUM 131 mEq/L (134-144); TOTAL PROTEIN 5.9 g/dL (6.3-8.2)
[2017-02-23 05:17] LABS: BILIRUBIN-CONJUGATED 0.3 mg/dL (0.0-0.5); BILIRUBIN-UNCONJUGATED 2.3 mg/dL (0.0-1.1)
[2017-02-23] MEDS: POTASSIUM Cl (KCl) 40 MEQ in NS 1,000 ML IV SCH (07:42)
[2017-02-23] MEDS: THIAMINE HCL 500 MG in NS 100 ML IV SCH (09:48)
[2017-02-23] MEDS: MULTIVITAMINS 1 EACH TAB PO SCH (09:48)
[2017-02-23] MEDS: ENOXAPARIN 40 MG/0.4 ML SYR SC SCH (09:48)
[2017-02-23] MEDS: FAMOTIDINE 20 MG/NACL 50 ML IV SCH (09:49)
[2017-02-23] MEDS: NICOTINE 14 MG/24 HR PATCH TD SCH (09:49)
[2017-02-23] MEDS ORDERED: THIAMINE HCL 500 MG in NS 100 ML IV SCH (11:05)
[2017-02-23 12:11] VITALS: BP 124/73; PULSE 80; TEMP 97.8; O2SAT 90
--- NOTE | 2017-02-23 13:38 | ASMTCMCOM ---
CM Note CM Note Notes: Case Management provided resources for [facility] AA meetings, [facility] in [place] for possible behavioral health evaluation and PCP follow up and [facility] alcohol cessation classes to RN for d/c. RN using furniture mover to convey info to pt. Case Management d/c poc: Home independent w/information to initiate community resources. Date Signed: 02/23/2017 01:37 PM Electronically Signed By:Mikaela Hare RN
[2017-02-23] MEDS ORDERED: FLU VACC QS 2017-18 (3YR+)/PF 0.5 ML SYR (FLUARIX QUAD) IM ONE (13:59)
[2017-02-23] MEDS ORDERED: PNEUMOCOCCAL 0.5ML VACCINE VIAL IM ONE (13:59)
--- NOTE | 2017-02-23 16:19 | PDDCSUM ---
Discharge Summary Discharge Summary: DISCHARGE SUMMARY FOLLOW-UP ITEMS: Follow up primary care provider office, repeat liver panel as an outpatient DATE OF ADMISSION: 02/21/2017 DATE OF DISCHARGE: 02/23/2017 DISCHARGE DIAGNOSES: 1. Acute nausea and vomiting 2. Suspected acute gastritis 3. Acute alcohol withdrawal 4. Acute transaminitis 5. Acute hyponatremia 6. Acute hypokalemia 7. Acute metabolic alkalosis 8. Acute systemic inflammatory response syndrome CONSULTATIONS: None PROCEDURES / IMAGING: CT of the abdomen demonstrating constipation, normal gallbladder on 02/02/2017 CHIEF COMPLAINT: Acute nausea vomiting SUBJECTIVE: Patient's symptoms have completely resolved PHYSICAL EXAM ON DISCHARGE: Systolic blood pressure is 100-120, heart rate 60, afebrile overnight, satting well on room air, abdomen is soft nontender nondistended, bowel sounds are present, breath sounds are clear to auscultation bilaterally without any crackles or wheezes, heart rhythm is regular with a regular rate, he is alert awake oriented x3, no tremulousness LABS ON DISCHARGE: AST 180, ALT 110, total bilirubin 2.6, indirect, creatinine 0.9, potassium 3.8, serum sodium 131, white blood count [id number], hemoglobin 14.6, platelets [id number] HOSPITAL COURSE BY PROBLEM: 1. Acute nausea and vomiting. Most likely secondary to acute gastritis secondary to recent alcohol binge, patient's symptoms may have also exacerbated by acute alcohol withdrawal, and he was treated aggressively with high-dose IV Zofran, Phenergan, Ativan. His symptoms completely resolved and he will be provided with as-needed Zofran for symptomatic management moving forward. 2. Suspected acute gastritis. Most likely secondary to alcohol consumption, patient was placed on IV PPI and this should be continued for 30 days after discharge. We also recommend supportive care for any ongoing diarrhea with Imodium. 3. Acute hyponatremia. Most likely secondary to hypovolemia in the setting of vomiting and poor oral intake, received IV normal saline and his serum sodium level responded appropriately, safely. Is currently tolerating oral intake at time of discharge. 4. Acute hypokalemia. Secondary to nausea vomiting, received aggressive IV supplementation with IV potassium, IV fluids, IV magnesium. His serum potassium level was 3.8 at time of discharge, he is maintaining good oral intake. 5. Acute metabolic alkalosis. Secondary to with vomiting received IV fluids, symptomatic management, resolved discharge. 6. Acute systemic inflammatory response syndrome. No evidence of acute infection, most likely secondary to alcohol withdrawal and stress of above, resolved with IV fluids. 7. Acute alcohol withdrawal. Secondary to recent binge, presented with tremulousness, nausea vomiting, received Ativan. Patient was no longer scoring on CIWA, he is safe for discharge, does not require any p.r.n. Ativan. We did domestic violence counselor the patient regarding alcohol abuse prior to discharge, I recommend that he continues conversation with his primary care provider. 8. Acute transaminitis. Most likely secondary to alcohol abuse, patient has no evidence of active hepatitis, with benign abdomen at time of discharge. DISCHARGE MEDICATIONS: Please see official discharge medication reconciliation sheet in chart , as needed Zofran, as needed Imodium, scheduled pantoprazole 40 mg daily x1 month. DISCHARGE INSTRUCTIONS: Please maintain sobriety and follow-up with PCP. TIME SPENT: Greater than 30 minutes were spent on direct patient care, as well as discharge planning and preparation.
[2017-02-25] MEDS ORDERED: THIAMINE HCL 100 MG TAB PO SCH (09:00)
== END 2017-02-23 16:10 | disposition home or self-care (01) | DRG 392 ==
LOC: F2W 02-22 02:05
PROVIDERS: ADMIT Family Medicine; ATTEND Family Medicine
DX: K29.20 Alcoholic gastritis without bleeding (principal); F10.239 Alcohol dependence with withdrawal, unspecified; E87.1 Hypo-osmolality and hyponatremia; E87.3 Alkalosis; R65.10 Systemic inflammatory response syndrome (SIRS) of non-infectious origin without acute organ dysfunction; E86.1 Hypovolemia; E87.6 Hypokalemia; I10 Essential (primary) hypertension; Z23 Encounter for immunization; N40.0 Benign prostatic hyperplasia without lower urinary tract symptoms
CPT/HCPCS: 96374; G0008; G0009; J1170; J1650; J2060; J2405; J2550; J3411

== ENCOUNTER 2017-04-27 14:01 | Observation (INO) | payer MEDICAID ==
[2017-04-27] MEDS ORDERED: ONDANSETRON 4 MG/2 ML VIAL ONE (14:41)
[2017-04-27] MEDS ORDERED: ONDANSETRON 4 MG/2 ML VIAL IVP ONE (14:44)
[2017-04-27 14:48] LABS: % IMMATURE GRANULYOCYTES 0.3 % (0.0-1.1); ABSOLUTE IMMATURE GRANULOCYTES 0.03 10^3/uL (0.00-0.10); ADD DIFF? NO; ADD MORPH? NO; ADD SCAN? NO; ATYPICAL LYMPHOCYTE FLAG 0 (0-99); FRAGMENT RBC FLAG 0 (0-99); HEMATOCRIT 46.7 % (40.0-51.0); HEMOGLOBIN 17.1 g/dL (13.7-17.5); LEFT SHIFT FLG 0 (0-99); LIPEMIA HEMOLYSIS FLAG 90 (0-99); MEAN CELL HEMOGLOBIN CONCENTR. 36.6 g/dL (32.4-36.7); MEAN CELL VOLUME 84.6 fL (81.5-99.8); PLATELET CLUMPS FLAG 0 (0-99); PLATELET COUNT 264 10^3/uL (150-400); RED BLOOD CELL COUNT 5.52 10^6/uL (4.40-6.38); RED CELL DISTRIBUTION WIDTH 14.6 % (11.5-15.2)
--- NOTE | 2017-04-27 14:56 | EDPHY ---
HPI/HX/ROS/PE/MDM Narrative: CHIEF COMPLAINT: Abdominal pain, nausea, vomiting HPI: The patient is an alcoholic 51 y/o male complaining of abdominal pain, nausea, and vomiting for 3 days. He was last admitted in January 2017, 2 months ago, for similar symptoms. He drinks about 20 beers a day and last drank alcohol yesterday. His legs have also felt weaker than normal for the past 4 days. Due to the vomiting, he has been unable to sleep or eat for 3 days. Denies shortness of breath, urinary or bowel complaints, fevers or other pertinent symptoms. A outreach team member was used to communicate with the patient. REVIEW OF SYSTEMS: Aside from elements discussed in the HPI, a comprehensive 10-point review of systems was reviewed and is negative. PMH: Hypertension, alcoholism SOCIAL HISTORY: , lives in [place], un-employed PHYSICAL EXAM: General:Patient is mildly tremulus, alert, in no acute distress. ENT:Eyes are normal to inspection. ENT inspection normal. Neck: Normal inspection. Full range of motion. Respiratory:No respiratory distress. Breath sounds normal bilaterally. Cardiovascular: Regular rate and rhythm. Strong peripheral pulses. Normal cap refill. Abdomen:The abdomen is nontender to palpation. There are no peritoneal signs. There are normal bowel sounds. Back: Normal to inspection. No tenderness to palpation. Skin: Normal color. No rash. Warm and dry. Extremities: Normal appearance. Full range of motion. Neuro: Oriented x3. Normal motor function. Normal sensory function. ED Course: 1555: Patient's abdominal pain has improved after 1L IV NS, 20mg IV Pepcid, 2mg IV Ativan, and 4mg IV Zofran. 170: Patient feeling nauseous again. 12.5mg IV Phenergan administered. 1932: Reassessed patient. He complains of nausea. He has been able to tolerate both water and peanut butter and crackers. Via serology technician, I asked the patient what we could do for him. He is requesting pain medication. However, the patient falls asleep in between evaluations and does not appear in distress. Reviewing his chart, he has a history of numerous ED visits as well as recent hospital admission with diagnoses of alcohol withdrawal and gastritis. This appears to represent a recurrence of the same. There is no evidence for pancreatitis, GI bleed or infectious etiology. The patient's alcohol withdrawal is well-controlled. We agreed to a plan of an additional dose of Ativan here in the ED followed by discharge home. The patient initially stated he could not go home. I asked him how he got here and he said his friend drove him. Patient noted to be hypoxic requiring O2 by NM, which necessitates admission. 1955: Spoke with hospitalist service, Dr. Graf accepts admission of this patient. - Data Points Laboratory Results: Laboratory Results 04/27/17 14:46 04/27/17 14:46 04/27/17 04/27/17 14:46 14:46 WBC 11.85 10^3/uL H 10^3/uL (3.80-9.50) RBC 5.52 10^6/uL 10^6/uL (4.40-6.38) Hgb 17.1 g/dL g/dL (13.7-17.5) Hct 46.7 % % (40.0-51.0) MCV 84.6 fL fL (81.5-99.8) MCH 31.0 pg pg (27.9-34.1) MCHC 36.6 g/dL g/dL (32.4-36.7) RDW 14.6 % % (11.5-15.2) Plt Count 264 10^3/uL 10^3/uL (150-400) MPV 9.0 fL fL (8.7-11.7) Neut % (Auto) 88.3 % H % (39.3-74.2) Lymph % (Auto) 4.7 % L % (15.0-45.0) [place] % (Auto) 6.2 % % (4.5-13.0) Eos % (Auto) 0.2 % L % (0.6-7.6) Baso % (Auto) 0.3 % % (0.3-1.7) Nucleat RBC Rel Count 0.0 % % (0.0-0.2) Absolute Neuts (auto) 10.47 10^3/uL H 10^3/uL (1.70-6.50) Absolute Lymphs (auto) 0.56 10^3/uL L 10^3/uL (1.00-3.00) Absolute Monos (auto) 0.74 10^3/uL 10^3/uL (0.30-0.80) Absolute Eos (auto) 0.02 10^3/uL L 10^3/uL (0.03-0.40) Absolute Basos (auto) 0.03 10^3/uL 10^3/uL (0.02-0.10) Absolute Nucleated RBC 0.00 10^3/uL 10^3/uL (0-0.01) Immature Gran % 0.3 % % (0.0-1.1) Immature Gran # 0.03 10^3/uL 10^3/uL (0.00-0.10) Sodium 128 mEq/L L mEq/L (134-144) Potassium 2.5 mEq/L L* mEq/L (3.5-5.2) Chloride 68 mEq/L L mEq/L (97-110) Carbon Dioxide 45 mEq/l H* mEq/l (22-31) Anion Gap 15 mEq/L mEq/L (8-16) BUN 23 mg/dL mg/dL (7-23) Creatinine 1.0 mg/dL mg/dL (0.7-1.3) Estimated GFR > 60 Glucose 186 mg/dL H mg/dL (70-100) Calcium 9.4 mg/dL mg/dL (8.5-10.4) Lipase 26 IU/L IU/L (23-300) Medications Given: Discontinued Medications Acetaminophen (Tylenol) 650 mg PO EDNOW ONE Stop: 04/27/17 15:57 Last Admin: 04/27/17 15:58 Dose: 650 mg Chlordiazepoxide HCl (Librium) 25 mg PO EDNOW ONE Stop: 04/27/17 15:05 Last Admin: 04/27/17 15:58 Dose: 25 mg Sodium Chloride (Ns) 1,000 mls @ 0 mls/hr IV EDNOW ONE; Wide Open PRN Reason: Protocol Stop: 04/27/17 14:58 Last Admin: 04/27/17 14:30 Dose: 1,000 mls Famotidine/Sodium Chloride (Pepcid 20 Mg (Premix)) 50 mls @ 200 mls/hr IV EDNOW ONE Stop: 04/27/17 15:19 Last Admin: 04/27/17 15:09 Dose: 50 mls Sodium Chloride (Ns) 1,000 mls @ 0 mls/hr IV ONCE ONE PRN Reason: Wide Open Stop: 04/27/17 15:07 Last Admin: 04/27/17 15:12 Dose: 1,000 mls Lorazepam (Ativan Injection) 2 mg IVP EDNOW ONE Stop: 04/27/17 15:05 Last Admin: 04/27/17 15:10 Dose: 2 mg Lorazepam (Ativan Injection) 1 mg IVP EDNOW ONE Stop: 04/27/17 19:40 Last Admin: 04/27/17 19:44 Dose: 1 mg Ondansetron HCl (Zofran) 4 mg IVP EDNOW ONE Stop: 04/27/17 14:45 Last Admin: 04/27/17 14:46 Dose: 4 mg Promethazine HCl (Phenergan) 12.5 mg IVP EDNOW ONE Stop: 04/27/17 17:04 Last Admin: 04/27/17 17:07 Dose: 12.5 mg General Time Seen by Provider: 04/27/17 14:55 Initial Vital Signs: Initial Vital Signs Temperature (C) 37.0 C 04/27/17 14:10 Heart Rate 98 04/27/17 14:10 Respiratory Rate 22 H 04/27/17 14:10 Blood Pressure 178/90 H 04/27/17 14:10 O2 Sat (%) 97 04/27/17 14:10 O2 Delivery Mode Nasal Cannula O2 (L/minute) 2 Allergies/Adverse Reactions: No Known Allergies Allergy (Verified 02/21/17 21:48) Home Medications: Medication Instructions Recorded Calcium Carb W/Vit D [Calcium Carb 1,000 mg PO DAILY 04/27/17 W/Vit D 500/200 (*)] Herbals/Supplements -Info Only 1 ea PO DAILY 04/27/17 Ibuprofen [Motrin (*)] 400 mg PO DAILY PRN 04/27/17 [place]-3 Fatty Acids [Fish Oil 1000 2,000 mg PO DAILY 04/27/17 mg (*)] Ranitidine HCl 150 mg PO DAILY 04/27/17 Departure - Departure Disposition: [facility] Acute Clinical Impression: Hypokalemia, Hypoxic Alcohol withdrawal Qualifiers: Complication of substance-induced condition: uncomplicated Qualified Code(s): F10.230 - Alcohol dependence with withdrawal, uncomplicated Condition: Fair Report Scribed for: Weston Bradley Report Scribed by: Suri Montilla Date of Report: 04/27/17 Time of Report: 14:56 Physician Review and Approval Statement: Portions of this note were transcribed by an ED scribe. I personally performed the history, physical exam, and medical decision making; and confirm the accuracy of the information in the transcribed note.
[2017-04-27] MEDS ORDERED: NS 1,000 ML IV ONE ×2 (14:57→15:06)
[2017-04-27] MEDS ORDERED: LORazepam 2 MG/ML INJ IVP ONE ×2 (15:04→19:39)
[2017-04-27] MEDS ORDERED: chlordiazePOXIDE 25 MG CAP PO ONE (15:04)
[2017-04-27] MEDS ORDERED: FAMOTIDINE 20 MG/NACL 50 ML IV ONE (15:05)
[2017-04-27 15:06] LABS: CALCIUM 9.4 mg/dL (8.5-10.4); CHLORIDE 68 mEq/L (97-110); GLOMERULAR FILTRATION RATE > 60; GLUCOSE 186 mg/dL (70-100); SODIUM 128 mEq/L (134-144)
[2017-04-27 15:31] LABS: ANION GAP 15 mEq/L (8-16)
[2017-04-27 15:32] LABS: CARBON DIOXIDE 45 mEq/l (22-31); POTASSIUM 2.5 mEq/L (3.5-5.2)
[2017-04-27] MEDS ORDERED: ACETAMINOPHEN 325 MG TAB PO ONE (15:56)
[2017-04-27] MEDS ORDERED: ACETAMINOPHEN 500 MG TAB ONE (15:57)
[2017-04-27] MEDS ORDERED: PROMETHAZINE HCL 25 MG/ML INJ IVP ONE (17:03)
[2017-04-27] MEDS ORDERED: PROMETHAZINE HCL 25 MG/ML INJ IVP PRN (20:01)
[2017-04-27] MEDS ORDERED: ONDANSETRON DISINTEGRATING 4 MG TAB PO PRN (20:01)
[2017-04-27] MEDS ORDERED: ONDANSETRON 4 MG/2 ML VIAL IVP PRN (20:01)
[2017-04-27] MEDS ORDERED: PROMETHAZINE HCL 25 MG TAB PO PRN (20:01)
[2017-04-27] MEDS ORDERED: LORazepam 2 MG/ML INJ IVP PRN (20:04)
[2017-04-27] MEDS ORDERED: MAGNESIUM SULF 1 GM/DEXTROSE 100 ML IV ONE (20:04)
[2017-04-27 20:21] LABS: ALBUMIN 4.4 g/dL (3.5-5.0); BILIRUBIN,TOTAL 3.8 mg/dL (0.1-1.4); BILIRUBIN-CONJUGATED 0.4 mg/dL (0.0-0.5); BILIRUBIN-UNCONJUGATED 3.4 mg/dL (0.0-1.1); TOTAL PROTEIN 7.7 g/dL (6.3-8.2)
[2017-04-27 20:36] LABS: PHENCYCLIDINE URINE BCH < 6 ng/ml (NEGATIVE); PHENCYCLIDINE URINE BCH NEGATIVE (NEGATIVE); TETRAHYDROCANNABINOL URINE < 5 ng/mL (NEGATIVE); TETRAHYDROCANNABINOL URINE NEGATIVE (NEGATIVE)
[2017-04-27] MEDS: POTASSIUM Cl (KCl) 40 MEQ in NS 1,000 ML IV SCH (21:24)
--- NOTE | 2017-04-27 21:33 | PDGENHP ---
History and Physical - Chief Complaint Acute vomiting - History of Present Illness Primary care provider: [facility] HPI: 51-year-old male presenting with acute vomiting characterized as clear, liquid brown material with associated nausea, abdominal pain located diffusely throughout, with onset of symptoms 3 days ago and resultant poor oral intake, poor sleep, generalized weakness particularly in the legs. His last alcoholic beverage was on the day prior to this presentation, and he reports that although he has been attempting to drink liquids, the seemed to exacerbate his nausea, worsen his vomiting. Consequently, he has not experienced any recent bowel movements, and he reports low urine output. The nausea has been somewhat alleviated by the combination of Ativan, Zantac, librium received in the emergency department, but it does continue at the time of this evaluation. Prior to his onset of symptoms, the patient had been engaging in alcohol binge. History Information - Allergies/Home Medication List Allergies/Adverse Reactions: No Known Allergies Allergy (Verified 02/21/17 21:48) Home Medications: Calcium Carb W/Vit D [Calcium Carb W/Vit D 500/200 (*)] 1,000 mg PO DAILY [Last Taken Unknown] Herbals/Supplements -Info Only 1 ea PO DAILY 04/27/17 [Last Taken Unknown] Ibuprofen [Motrin (*)] 400 mg PO DAILY PRN 04/27/17 [Last Taken Unknown] [place]-3 Fatty Acids [Fish Oil 1000 mg (*)] 2,000 mg PO DAILY 04/27/17 [Last Taken Unknown] Ranitidine HCl 150 mg PO DAILY 04/27/17 [Last Taken Unknown] I have personally reviewed and updated: family history, medical history, social history, surgical history - Past Medical History hypertension Additional medical history: Alcoholism with resultant gastritis, history of withdrawal, history of alcohol induced hepatitis, upper gastrointestinal hemorrhage. BPH - Surgical History Reports: no pertinent surgical hx - Family History Additional family history: Father of alcoholism - Social History Smoking Status: Current some day smoker Alcohol Use: Heavy Drug Use: None Additional social history: Independent in his ADLs Review of Systems Review of Systems: ROS: 10pt was reviewed & negative except for what was stated in HPI & below Constitutional: Reports: weakness, other (Anorexia) Gastrointestinal: Reports: vomitting, abdominal pain, nausea Physical Exam Physical Exam: Temp Pulse Resp BP Pulse Ox 37.0 C 66 14 110/67 94 04/27/17 20:28 04/27/17 21:12 04/27/17 21:12 04/27/17 21:12 04/27/17 21:12 O2 (L/minute) 2 Constitutional: chronically ill appearing, uncomfortable, unkempt, No not in pain (Mild abdominal pain) Eyes: PERRL, EOMI, scleral injection (Bilaterally, left greater than right) Ears, Nose, Mouth, Throat: no oral mucosal ulcers, other (Tacky mucous membranes ) Cardiovascular: tachycardia, No systolic murmur, No irregularly irregular, No edema Respiratory: no respiratory distress, no rales or rhonchi, clear to auscultation Gastrointestinal: normoactive bowel sounds, tenderness (Right upper quadrant), No ascites, No guarding, No distension Skin: other (Ecchymoses around left eye), No rash (Or vesicular lesions over the abdomen) Neurologic: AAOx3, sensation intact bilaterally, No weakness (Motor strength 5/ 5 bilateral lower extremities), No asterixes (Tremulousness) Psychiatric: thought process linear, anxious, other (Cooperative and follows commands), No agitated Lab Data & Imaging Review 04/27/17 14:46 04/27/17 14:46 WBC 11.85 10^3/uL (3.80-9.50) H 04/27/17 14:46 RBC 5.52 10^6/uL (4.40-6.38) 04/27/17 14:46 Hgb 17.1 g/dL (13.7-17.5) 04/27/17 14:46 Hct 46.7 % (40.0-51.0) 04/27/17 14:46 MCV 84.6 fL (81.5-99.8) 04/27/17 14:46 MCH 31.0 pg (27.9-34.1) 04/27/17 14:46 MCHC 36.6 g/dL (32.4-36.7) 04/27/17 14:46 RDW 14.6 % (11.5-15.2) 04/27/17 14:46 Plt Count 264 10^3/uL (150-400) 04/27/17 14:46 MPV 9.0 fL (8.7-11.7) 04/27/17 14:46 Neut % (Auto) 88.3 % (39.3-74.2) H 04/27/17 14:46 Lymph % (Auto) 4.7 % (15.0-45.0) L 04/27/17 14:46 [place] % (Auto) 6.2 % (4.5-13.0) 04/27/17 14:46 Eos % (Auto) 0.2 % (0.6-7.6) L 04/27/17 14:46 Baso % (Auto) 0.3 % (0.3-1.7) 04/27/17 14:46 Nucleat RBC Rel Count 0.0 % (0.0-0.2) 04/27/17 14:46 Absolute Neuts (auto) 10.47 10^3/uL (1.70-6.50) H 04/27/17 14:46 Absolute Lymphs (auto) 0.56 10^3/uL (1.00-3.00) L 04/27/17 14:46 Absolute Monos (auto) 0.74 10^3/uL (0.30-0.80) 04/27/17 14:46 Absolute Eos (auto) 0.02 10^3/uL (0.03-0.40) L 04/27/17 14:46 Absolute Basos (auto) 0.03 10^3/uL (0.02-0.10) 04/27/17 14:46 Absolute Nucleated RBC 0.00 10^3/uL (0-0.01) 04/27/17 14:46 Immature Gran % 0.3 % (0.0-1.1) 04/27/17 14:46 Immature Gran # 0.03 10^3/uL (0.00-0.10) 04/27/17 14:46 Sodium 128 mEq/L (134-144) L 04/27/17 14:46 Potassium 2.5 mEq/L (3.5-5.2) L* 04/27/17 14:46 Chloride 68 mEq/L (97-110) L 04/27/17 14:46 Carbon Dioxide 45 mEq/l (22-31) H* 04/27/17 14:46 Anion Gap 15 mEq/L (8-16) 04/27/17 14:46 BUN 23 mg/dL (7-23) 04/27/17 14:46 Creatinine 1.0 mg/dL (0.7-1.3) 04/27/17 14:46 Estimated GFR > 60 04/27/17 14:46 Glucose 186 mg/dL (70-100) H 04/27/17 14:46 Calcium 9.4 mg/dL (8.5-10.4) 04/27/17 14:46 Total Bilirubin 3.8 mg/dL (0.1-1.4) H 04/27/17 14:46 Conjugated Bilirubin 0.4 mg/dL (0.0-0.5) 04/27/17 14:46 Unconjugated Bilirubin 3.4 mg/dL (0.0-1.1) H 04/27/17 14:46 AST 62 IU/L (17-59) H 04/27/17 14:46 ALT 55 IU/L (21-72) 04/27/17 14:46 Alkaline Phosphatase 87 IU/L (38-126) 04/27/17 14:46 Total Protein 7.7 g/dL (6.3-8.2) 04/27/17 14:46 Albumin 4.4 g/dL (3.5-5.0) 04/27/17 14:46 Lipase 26 IU/L (23-300) 04/27/17 14:46 Urine Opiates Screen NEGATIVE ng/mL (NEGATIVE) 04/27/17 20:00 Urine Barbiturates NEGATIVE ng/mL (NEGATIVE) 04/27/17 20:00 Ur Phencyclidine Scrn NEGATIVE ng/mL (NEGATIVE) 04/27/17 20:00 Ur Amphetamines Screen NEGATIVE ng/mL (NEGATIVE) 04/27/17 20:00 U Benzodiazepines Scrn NEGATIVE ng/mL (NEGATIVE) 04/27/17 20:00 Urine Cocaine Screen NEGATIVE ng/mL (NEGATIVE) 04/27/17 20:00 U Marijuana (THC) Screen NEGATIVE ng/mL (NEGATIVE) 04/27/17 20:00 Visualized and Interpreted imaging results: Yes Interpretation: Normal sinus mechanism on athletic monitor in the emergency department Assessment & Plan Assessment: 51-year-old male presenting with acute intractable nausea vomiting the setting of suspected alcohol induced gastritis with resultant severe hypokalemia, acute hyponatremia, systemic inflammatory response syndrome Plan: 1. Nausea and vomiting. Acute, intractable, resulting in inability to tolerate oral intake, most likely secondary to alcohol-induced gastritis -reviewed outside records including 02/23/[address] Jamaal Graf, reports the patient was experiencing suspected alcohol induced gastritis with a normal abdominal CT, demonstrating constipation with no gallbladder findings, was recommended that he utilize proton pump inhibitor the next 30 days -will place patient on IV PPI once daily, gauge effect -antiemetics including Zofran, Phenergan, Ativan -bowel rest with clear liquid diet, IV fluids, advanced tomorrow if improving 2. Severe hypokalemia. Secondary to nausea and vomiting, replete aggressively with normal saline and 40 mEq of potassium, as well as IV magnesium, repeat levels in a.m. -placed on telemetry to ensure no arrhythmias 3. Metabolic alkalosis. Severe, secondary to vomiting and contraction alkalosis -give IV normal saline, monitor closely 4. Hyponatremia. Acute, secondary to hypovolemia, give normal saline and repeat serum sodium level in a.m. 5. Hyperglycemia. Most likely acute reacting, recheck hemoglobin A1c 6. Hypertension. Chronic, hold antihypertensive given hypovolemia 7. Systemic inflammatory response syndrome. Suspect there is not an acute infection, most likely secondary to alcohol-induced gastritis, continue to monitor white blood cell count and vital signs 8. Alcoholism. Chronic, patient is high risk for acute alcohol withdrawal, placed him on CIWA protocol, check urine drug screen for concomitant ingest since Diet. Clears, advance tomorrow if tolerating, continue IV fluids Prophylaxis. Low risk patient, SCDs Code. Full Disposition. Anticipated discharge is 04/28, pending further workup and stabilization of condition as outlined above. I have discussed patient's presentation with Dr. Weston Bradley, we both agree the patient is unsafe to be discharged from the emergency department this time, continue IV fluids and supportive care.
[2017-04-27] MEDS ORDERED: NICOTINE POLACRILEX 2 MG GUM B PRN (21:39)
[2017-04-27] MEDS: PANTOPRAZOLE SODIUM 40 MG VIAL IVP SCH (21:56)
[2017-04-28 04:53] LABS: % IMMATURE GRANULYOCYTES 0.3 % (0.0-1.1); ABSOLUTE IMMATURE GRANULOCYTES 0.03 10^3/uL (0.00-0.10); ADD DIFF? NO; ADD MORPH? NO; ADD SCAN? NO; ATYPICAL LYMPHOCYTE FLAG 0 (0-99); FRAGMENT RBC FLAG 0 (0-99); HEMATOCRIT 42.1 % (40.0-51.0); HEMOGLOBIN 15.1 g/dL (13.7-17.5); LEFT SHIFT FLG 10 (0-99); LIPEMIA HEMOLYSIS FLAG 90 (0-99); MEAN CELL HEMOGLOBIN 31.4 pg (27.9-34.1); MEAN CELL HEMOGLOBIN CONCENTR. 35.9 g/dL (32.4-36.7); MEAN CELL VOLUME 87.5 fL (81.5-99.8); MEAN PLATELET VOLUME 9.7 fL (8.7-11.7); PLATELET CLUMPS FLAG 10 (0-99); PLATELET COUNT 207 10^3/uL (150-400); RED BLOOD CELL COUNT 4.81 10^6/uL (4.40-6.38); RED CELL DISTRIBUTION WIDTH 14.9 % (11.5-15.2)
[2017-04-28] MEDS: POTASSIUM Cl (KCl) 40 MEQ in NS 1,000 ML IV SCH (04:54)
[2017-04-28 04:55] LABS: ALANINE AMINOTRANSFERASE 49 IU/L (21-72); ALBUMIN 3.3 g/dL (3.5-5.0); ALKALINE PHOSPHATASE 56 IU/L (38-126); ASPARTATE AMINOTRANSFERASE 52 IU/L (17-59); BILIRUBIN,TOTAL 3.2 mg/dL (0.1-1.4); CALCIUM 8.3 mg/dL (8.5-10.4); CHLORIDE 84 mEq/L (97-110); GLOMERULAR FILTRATION RATE > 60; GLUCOSE 110 mg/dL (70-100); MAGNESIUM 2.6 mg/dL (1.6-2.3); POTASSIUM 2.9 mEq/L (3.5-5.2); SODIUM 133 mEq/L (134-144); TOTAL PROTEIN 6.1 g/dL (6.3-8.2)
[2017-04-28 05:02] LABS: ANION GAP 8 mEq/L (8-16)
[2017-04-28 05:03] LABS: CARBON DIOXIDE 41 mEq/l (22-31)
[2017-04-28 05:13] LABS: BILIRUBIN-CONJUGATED 0.2 mg/dL (0.0-0.5)
[2017-04-28] MEDS: PANTOPRAZOLE SODIUM 40 MG VIAL IVP SCH (08:20)
[2017-04-28] MEDS: LORazepam 1 MG TAB PO PRN ×2 (08:31→22:07)
[2017-04-28] MEDS ORDERED: NICOTINE 21 MG/24 HR PATCH TD SCH (09:00)
[2017-04-28 09:35] LABS: HEMOGLOBIN A1C 5.7 % (4.0-6.0)
--- NOTE | 2017-04-28 09:49 | HOSPPROG ---
Hospitalist Progress Note Assessment/Plan: Patient is a 51-year-old male who presented to the emergency room with acute intractable nausea and vomiting. Of note he had severe hypokalemia, hyponatremia. Today is my 1st encounter with the patient. Chart reviewed. 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 At this time I am unable to discharge the patient. He is still continuing to have bouts of emesis and cannot take in adequate intake. Will re- evaluate later today to see if he improves. Subjective: Adelso is feeling poorly during my evaluation. Wants to sleep. Objective: Vital Signs Temp Pulse Resp BP Pulse Ox 36.6 C 63 14 107/67 98 04/28/17 07:45 04/28/17 07:45 04/28/17 07:45 04/28/17 07:45 04/28/17 07:45 Laboratory Results 04/28/17 04:30 04/28/17 04:30 04/27/17 04/28/17 04/29/17 05:59 05:59 05:59 Intake Total 4100 Output Total 1050 850 Balance 3050 -850 - Physical Exam Constitutional: not in pain, uncomfortable Eyes: PERRL Ears, Nose, Mouth, Throat: hearing normal Cardiovascular: regular rate and rhythym Respiratory: no respiratory distress Gastrointestinal: normoactive bowel sounds, tenderness (epigastric area) Skin: warm Musculoskeletal: full muscle strength Neurologic: AAOx3, other (met with him via the skilled helper) Psychiatric: interacting appropriately ICD10 Worksheet Patient Problems: Problems Problem Status Onset Alcohol withdrawal Acute Hypokalemia Acute Hypoxic Acute Hypochloremia Acute Hypomagnesemia Acute Hyponatremia Acute Metabolic alkalosis Acute Sepsis Acute Vomiting Acute
--- NOTE | 2017-04-28 14:30 | ASMTCASEMG ---
Living Arrangements What is your living Answers: With Spouse arrangement? Who do you live with? Type Of Residence What kind of residence do Answers: House you live in? Discharge Plan Comments Coordination Status Comments Notes: Pt is a 51 y/o man admitted for ETOH withdrawals and vomiting. PT/OT have been ordered and awaiting recommendations. Pt needs are TBD at this time. Anticipates that pt will d/c independent when medically stable. CM to follow for d/c needs. Plan: Independent Date Signed: 04/28/2017 02:29 PM Electronically Signed By:DIANA Sandhu
[2017-04-28 14:56] LABS: ANION GAP 12 mEq/L (8-16); CALCIUM 8.3 mg/dL (8.5-10.4); CARBON DIOXIDE 31 mEq/l (22-31); CHLORIDE 89 mEq/L (97-110); CREATININE 0.9 mg/dL (0.7-1.3); GLOMERULAR FILTRATION RATE > 60; GLUCOSE 178 mg/dL (70-100); POTASSIUM 3.4 mEq/L (3.5-5.2); SODIUM 132 mEq/L (134-144)
[2017-04-28] MEDS ORDERED: ACETAMINOPHEN 500 MG TAB PO PRN (22:20)
[2017-04-29 04:34] VITALS: RESP 16
[2017-04-29 06:05] LABS: ALANINE AMINOTRANSFERASE 73 IU/L (21-72); ALBUMIN 3.2 g/dL (3.5-5.0); ALKALINE PHOSPHATASE 52 IU/L (38-126); ANION GAP 5 mEq/L (8-16); ASPARTATE AMINOTRANSFERASE 74 IU/L (17-59); BILIRUBIN,TOTAL 2.6 mg/dL (0.1-1.4); CALCIUM 8.7 mg/dL (8.5-10.4); CARBON DIOXIDE 34 mEq/l (22-31); CHLORIDE 96 mEq/L (97-110); CREATININE 0.9 mg/dL (0.7-1.3); GLOMERULAR FILTRATION RATE > 60; GLUCOSE 100 mg/dL (70-100); MAGNESIUM 2.2 mg/dL (1.6-2.3); POTASSIUM 3.1 mEq/L (3.5-5.2); SODIUM 135 mEq/L (134-144); TOTAL PROTEIN 5.7 g/dL (6.3-8.2)
[2017-04-29 06:11] LABS: BILIRUBIN-CONJUGATED 0.2 mg/dL (0.0-0.5); BILIRUBIN-UNCONJUGATED 2.4 mg/dL (0.0-1.1)
[2017-04-29 07:49] VITALS: BP 112/66; PULSE 67; TEMP 97.9; O2SAT 90
--- NOTE | 2017-04-29 09:09 | PDMN ---
Medical Necessity Medical necessity: change to IP; los>2mn for weakness r/t intractable N/V, and H /A; unable to discharge; requires continued monitoring; comorbid HTN, alcoholism; per order and progress note 04/28/17
--- NOTE | 2017-04-29 09:14 | HOSPPROG ---
Hospitalist Progress Note Assessment/Plan: Patient is a 51-year-old male who presented to the emergency room with acute intractable nausea and vomiting. Of note he had severe hypokalemia, hyponatremia. 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 dc home with f/u with PCP and repeat labs Subjective: Adelso is feeling well. Objective: Vital Signs Temp Pulse Resp BP Pulse Ox 36.6 C 67 16 112/66 90 L 04/29/17 07:48 04/29/17 07:48 04/29/17 07:48 04/29/17 07:48 04/29/17 07:48 Laboratory Results 04/28/17 04:30 04/29/17 03:01 04/28/17 04/29/17 04/30/17 05:59 05:59 05:59 Intake Total 4100 1500 Output Total 1050 3975 Balance 3050 -2475 - Physical Exam Constitutional: no apparent distress, appears nourished, not in pain Eyes: PERRL Ears, Nose, Mouth, Throat: hearing normal Respiratory: no respiratory distress Skin: warm Musculoskeletal: full muscle strength Neurologic: AAOx3 Psychiatric: interacting appropriately ICD10 Worksheet Patient Problems: Problems Problem Status Onset Alcohol withdrawal Acute Hypokalemia Acute Hypoxic Acute Hypochloremia Acute Hypomagnesemia Acute Hyponatremia Acute Metabolic alkalosis Acute Sepsis Acute Vomiting Acute
[2017-04-29] MEDS: PANTOPRAZOLE SODIUM 40 MG VIAL IVP SCH (10:20)
--- NOTE | 2017-04-29 10:23 | GDS ---
[f rep st] DISCHARGE SUMMARY DISCHARGE DIAGNOSES: 1. Nausea and vomiting. 2. Severe hypokalemia. 3. Hyponatremia. 4. Metabolic alkalosis. 5. Alcoholism. 6. Hypertension. 7. Hyperglycemia. HISTORY OF PRESENT ILLNESS: Briefly, the patient is a 51-year-old male who presented to the emergenc y room with acute intractable nausea and vomiting. He had significant low levels of potassium and so dium. He has a history of alcohol use. He stabilized with hydration and the electrolyte protocol. He will be discharged home and follow up with his primary care provider. HOSPITAL COURSE: 1. Nausea/vomiting, resolved. 2. Severe hypokalemia. Potassium is much improved; still on the low side, but he is eating and drin vandana well. Will get repeat labs with his PCP the end of this week. 3. Hyponatremia, resolved. 4. Metabolic alkalosis, improved. 5. Alcoholism. He said that he drinks after work with his friends. I have encouraged him to consid er cutting way back, that it is affecting his health. 6. Hypertension. Blood pressure is 112/66. 7. Hyperglycemia, resolved. DISCHARGE CONDITION: Stable. Blood pressure is 112/66, heart rate is 67, respiratory rate 16, O2 sa ts on room air 90%, temperature is 36.6 Celsius. MEDICATIONS AT DISCHARGE: Please see the EMR. DISCHARGE INSTRUCTIONS: 1. Follow up with Alpesh Escobar this week and get repeat electrolytes checked. 2. Try to cut back on his alcohol use. 3. If he develops persistent nausea and vomiting, to return to the ER. TIME SPENT: Greater than 30 minutes discharging and coordinating patient's care. /[id number]/MODL
--- NOTE | 2017-04-29 11:17 | ASDISCHSUM ---
Discharge Information Plan Status:Home with No Needs Medically Cleared to Leave:04/28/2017 Discharge Date:04/29/2017 10:46 AM CM D/C Disposition: ADT D/C Disposition:Home, Routine, Self-Care Projected Discharge Date:04/29/2017 12:00 AM Transportation at D/C: Discharge Delay Reason: Follow-Up Date:04/29/2017 12:00 AM Discharge Slot: Final Diagnosis: Placement Information Patient Contact Information Contact Name:NICOLÁS Relationship: Address:[address] [place] [address] [address] Work Phone: Joaquim:BAILEE Dupont Phone: [facility]/Zip Code:[place] [address] Email: Financial Information Financial Class: Primary Plan Desc:MEDICAID [facility] [employer] Primary Plan Number:[id number] Secondary Plan Desc: Secondary Plan Number: Assessment Information [facility] Initial CM Assessment Living Arrangements What is your living Answers: With Spouse arrangement? Who do you live with? Type Of Residence What kind of residence do Answers: House you live in? Discharge Plan Comments Coordination Status Comments Notes: Pt is a 51 y/o man admitted for ETOH withdrawals and vomiting. PT/OT have been ordered and awaiting recommendations. Pt needs are TBD at this time. Anticipates that pt will d/c independent when medically stable. CM to follow for d/c needs. Plan: Independent Date Signed: 04/28/2017 02:29 PM Electronically Signed By:DIANA Sandhu Intervention Information
== END 2017-04-29 10:46 | disposition home or self-care (01) ==
LOC: F3E 20:48
PROVIDERS: ADMIT Internal Medicine; ATTEND Internal Medicine
DX: R11.2 Nausea with vomiting, unspecified (principal); E87.6 Hypokalemia; E87.1 Hypo-osmolality and hyponatremia; E87.3 Alkalosis; F10.10 Alcohol abuse, uncomplicated; I10 Essential (primary) hypertension
CPT/HCPCS: 96365; 96375; 96376; 97161; 97165; 99285; G0378; 80307; G0480; J2060; J2405; J2550; J3475

== ENCOUNTER 2017-12-22 11:10 | Emergency (ER) | payer MEDICAID ==
--- NOTE | 2017-12-22 11:38 | EDPHY ---
H & P Stated Complaint: Fatigue, no energy, nausea x 3-4 days. Time Seen by Provider: 12/22/17 11:12 HPI/ROS: Chief Complaint: Fatigue, nausea HPI: A 52-year-old male with history of chronic alcoholism is presenting with 3 days of cold symptoms, fatigue, nausea. No vomiting. No pain. No dark black bowel movements. He has a mild nonproductive cough. No fevers or chills. No shortness of breath or chest pain. No lightheadedness or fainting. His last drink was last night. Patient states that he has not been drinking much since he has not been feeling well. No shakes or severe alcohol withdrawal symptoms. ROS: 10 point Review of Systems is negative except as noted in the HPI. PMH: Alcoholism Social History: No smoking, daily alcohol, no recreational drug use Family History: non-contributory Physical Exam: Gen: Awake, Alert, No Distress HEENT: Nose: no rhinorrhea Eyes: PERRLA, EOMI Mouth: Moist mucosa Neck: Supple, no JVD Chest: nontender, lungs clear to auscultation Heart: S1, S2 normal, no murmur Abd: Soft, non-tender, no guarding Back: no CVA tenderness, no midline tenderness Ext: no edema, non-tender Skin: no rash Neuro: CN II-XII intact, Sensation grossly intact, Strength 5/5 in bilateral upper and lower extremities - Personal History Current Tetanus Diphtheria and Acellular Pertussis (TDAP): Yes Tetanus Vaccine Date: 2013 - Medical/Surgical History Hx Asthma: No Hx Chronic Respiratory Disease: No Hx Diabetes: No Hx Cardiac Disease: No Hx Renal Disease: No Hx Cirrhosis: No Hx Alcoholism: Yes Hx HIV/AIDS: No Hx Splenectomy or Spleen Trauma: No Other PMH: Hypertension; ETOHism, GERD. - Social History Smoking Status: Current every day smoker Constitutional: Initial Vital Signs Temperature (C) 36.7 C 12/22/17 11:15 Heart Rate 61 12/22/17 11:15 Respiratory Rate 16 12/22/17 11:15 Blood Pressure 118/83 H 12/22/17 11:15 O2 Sat (%) 95 12/22/17 11:15 O2 Delivery Mode Room Air Allergies/Adverse Reactions: No Known Allergies Allergy (Verified 12/22/17 11:17) Home Medications: Medication Instructions Recorded Calcium Carb W/Vit D [Calcium Carb 04/27/17 W/Vit D 500/200 (*)] Herbals/Supplements -Info Only 04/27/17 Ibuprofen [Motrin (*)] 04/27/17 [place]-3 Fatty Acids [Fish Oil 1000 04/27/17 mg (*)] Ranitidine HCl 04/27/17 Pantoprazole Sodium [Protonix 40mg 12/22/17 (*)] Medical Decision Making - Diagnostics Imaging Results: Imaging Impressions Chest X-Ray 12/22/17 11:30 Impression: Clear lungs. No acute process. ED Course/Re-evaluation: 52-year-old male with general malaise and fatigue. Laboratory evaluations are normal. Chest x-ray is negative. Symptoms likely consistent with a viral process. No obvious metabolic or bacterial infectious process identified. Will discharge with follow-up with primary care, return for any concerns. - Data Points Laboratory Results: 12/22/17 11:44 POC Sodium 141 mEq/L mEq/L (135-145) POC Potassium 4.0 mEq/L mEq/L (3.3-5.0) POC Chloride 109.0 mEq/L mEq/L (97-110) POC Total CO2 27 mEq/L mEq/L (22-31) POC BUN 9 mg/dL mg/dL (7-23) POC Creatinine 1.0 mg/dL mg/dL (0.7-1.3) POC Glucose 115 mg/dL H mg/dL (70-100) POC Calcium 8.6 mg/dL mg/dL (8.5-10.4) POC Total Bilirubin 0.9 mg/dL mg/dL (0.1-1.4) POC AST 34 IU/L IU/L (17-59) POC ALT 34 IU/L IU/L (21-72) POC Alk Phosphatase 39 IU/L IU/L (38-126) POC Total Protein 6.1 g/dL L g/dL (6.3-8.2) POC Albumin 3.2 g/dL L g/dL (3.5-5.0) Medications Given: Discontinued Medications Ondansetron HCl (Zofran Odt) 4 mg PO EDNOW ONE Stop: 12/22/17 11:40 Last Admin: 12/22/17 11:45 Dose: 4 mg Point of Care Test Results: CBC CBC Collection Date 12/22/17 CBC Collection Time 11:33 WBC 8.7 RBC 5.26 HGB 15.6 HCT 47.1 PLT 342 Neut # 7.2 Neut 83.1 LYMPH # 1.2 LYMPH 13.6 Other WBC # 0.3 Other WBC 3.3 MCV 89.5 Chemistry 12/22/17 11:44 POC Sodium 141 mEq/L mEq/L (135-145) POC Potassium 4.0 mEq/L mEq/L (3.3-5.0) POC Chloride 109.0 mEq/L mEq/L (97-110) POC Total CO2 27 mEq/L mEq/L (22-31) POC BUN 9 mg/dL mg/dL (7-23) POC Creatinine 1.0 mg/dL mg/dL (0.7-1.3) POC Glucose 115 mg/dL H mg/dL (70-100) POC Calcium 8.6 mg/dL mg/dL (8.5-10.4) POC Total Bilirubin 0.9 mg/dL mg/dL (0.1-1.4) POC AST 34 IU/L IU/L (17-59) POC ALT 34 IU/L IU/L (21-72) POC Alk Phosphatase 39 IU/L IU/L (38-126) POC Total Protein 6.1 g/dL L g/dL (6.3-8.2) POC Albumin 3.2 g/dL L g/dL (3.5-5.0) Comprehensive Metabolic Panel CMP Collection Date 12/22/17 CMP Collection Time 11:33 Urine Dip Collection Date 12/22/17 Collection Time 11:39 Specific [place] (1.002-1.030) 1.015 PH (5.0-7.5) 7.5 Leukocytes (Negative) Negative Nitrites (Negative) Negative Protein (Negative) Negative Glucose (Negative) Negative Ketones (Negative) Negative Urobilnogen (0.2-1.0 EU) 0.2 Bilirubin (Negative) Negative Blood (Negative) Negative Departure - Departure Disposition: Home, Routine, Self-Care Clinical Impression: Viral illness Condition: Good Instructions: Viral Syndrome (ED) Additional Instructions: Follow up with primary care in 2-3 days for further evaluation. Return to the emergency department for fainting, chest pain, uncontrolled nausea vomiting, high fevers, or any other concerns. Referrals: [facility]ANC[facility],. [Clinic] - As per Instructions
[2017-12-22] MEDS ORDERED: ONDANSETRON DISINTEGRATING 4 MG TAB PO ONE (11:39)
[2017-12-22 12:30] VITALS: BP 110/73
== END 2017-12-22 12:30 | disposition home or self-care (01) ==
LOC: CED 11:10
DX: B34.9 Viral infection, unspecified (principal); I10 Essential (primary) hypertension; F17.200 Nicotine dependence, unspecified, uncomplicated
CPT/HCPCS: 71046-PO; 80053-PO

== ENCOUNTER 2018-11-06 10:17 | Emergency (ER) | payer MEDICAID | END 2018-11-06 10:55 | disposition home or self-care (01) | LOC: CED 10:17 ==